=== PATIENT | male | born 1995 | race Caucasian/White ===

== ENCOUNTER 2017-06-29 11:37 | Inpatient (IN) | payer OTHER, BC ==
[~2017-06-29] VITALS: Ht 177.8 cm; Wt 74.7 kg
--- NOTE | ~2017-06-29 | EKG ---
[facility] [address] [address] ELECTROCARDIOGRAM REPORT Name: AGUILAR HUGHES [id number] Admission: 06/29/17 Attend Phys: Discharge: Date of : [birth year] Report #: [id number] THIS REPORT FOR: //name// [facility] ED Test Date: 2017-06-29 Test Time: 11:54:41 Pat Name: AGUILAR HUGHES Department: Room: Gender: Chiropractic Physician: [facility] : 1995 Requested By: Vincenzo Jennings Order Number: [id number] MD: Bobby Burr Measurements Intervals [place] Rate: 76 P: -28 VA: 196 QRS: 72 QRSD: 91 T: 34 QT: 382 QTc: 430 Interpretive Statements Sinus rhythm ST elev, probable normal early repol pattern No previous ECG available for comparison Electronically Signed On 06-29-2017 16:15:38 CDT by Bobby Burr [email or web address] <ELECTRONICALLY SIGNED> By: Bobby Burr MD 06/29/17 1615 [id number] Bobby Burr MD /ERIKA
--- NOTE | ~2017-06-29 | HC ---
[facility] [place] [address] CONSULTATION Name: AGUILAR HUGHES Room #: 217-P ADM IN M.R.#: [id number] Admission: 06/29/17 Attend Phys: Modesto Nascimento DO Discharge: Date of : [birth year] Report #: [id number] THIS REPORT FOR: //name// CC: Modesto Nascimento NO PCP Naun Pantoja REASON FOR CONSULTATION: I was asked to evaluate for possible meningitis. HISTORY OF PRESENT ILLNESS: The patient was a 21-year-old who presents with severe headache and confusion. He does have a history of migraine headaches. He has been on several medications, but has had poor control. He has had a headache for about 3 days. No fever, chills or sweats. He was driving home from work and headache worsened. He pulled off the highway and highway patrol brought him in the Emergency Room. He is currently alert and cooperative. He still has headache mostly on the left side. He did note that he had loss of vision to his right eye. This is fairly typical for him with migraine headache. He has had no generalized weakness. No seizure activity. REVIEW OF SYSTEMS: Notes no rash, arthritis, pharyngitis symptoms, cough or sputum production. No chest pain, shortness of breath, nausea, vomiting, diarrhea, dysuria or frequency. He did have occasional episode of emesis with severe pain, but he has been able to eat. He has had no travel. No HIV risk factors. He works for a ____ [employer]. ALLERGIES: None. MEDICATIONS: None prior to his admission. He was given ceftriaxone in the Emergency Room. PAST MEDICAL HISTORY: Unremarkable. FAMILY HISTORY: Noncontributory. SOCIAL HISTORY: Nonsmoker, no significant alcohol intake. REVIEW OF SYSTEMS: As noted above. PHYSICAL EXAMINATION: VITAL SIGNS: He is afebrile, hemodynamically stable. Maximum temperature was 99.3. GENERAL: He was alert and cooperative. He had bilateral conjunctivitis. HEENT: Otherwise, unremarkable. NEUROLOGIC: Normal. NECK: Supple. LUNGS: Clear. HEART: Regular. [facility] [address] [place] [address] CONSULTATION Name: AGUILAR HUGHES Room #: 217-P [facility] IN M.R.#: [id number] Admission: 06/29/17 Attend Phys: Modesto Nascimento DO Discharge: Date of : [birth year] Report #: [id number] ABDOMEN: Soft and nontender. EXTREMITIES: He had no rashes or adenopathy. LABORATORY STUDIES: Hemoglobin 15, WBC 12.4, platelet count 192,000. Differential 85% segs, 10% lymphs. Sodium 135, potassium 3.1, bicarbonate 23, creatinine 1.1. Blood and CSF cultures are pending. Drug screen was negative. Urinalysis had 1+ ketones. CT of the head with angio negative. MRI scan of the head negative. Chest x-ray was clear. Lumbar puncture, normal. IMPRESSION AND PLAN: Migraine headache. He does have conjunctivitis, but no evidence for underlying infection. I would like to stop his antibiotics at this time and repeat laboratory studies including CBC in the a.m. He will continue with treatment for his migraine headaches. Neurology is to see him. Thank you for this consultation. <ELECTRONICALLY SIGNED> By: Marco Manuel MD 06/30/17 1139 99 99 Marco Manuel MD /nt
--- NOTE | ~2017-06-29 | HC ---
[facility] [place] [place] [address] CONSULTATION Name: AGUILAR HUGHES Room #: 217-P ADM IN M.R.#: [id number] Admission: 06/29/17 Attend Phys: Modesto Nascimento DO Discharge: Date of : [birth year] Report #: [id number] THIS REPORT FOR: //name// CC: Modesto Nascimento NO PCP Naun Pantoja DATE OF SERVICE: 06/30/2017 HISTORY OF PRESENT ILLNESS: This is a 21-year-old male patient for whom an attempt was made to evaluate him yesterday, which was unsuccessful because of the patient's combativeness. I reexamined him today and talked to him. He is back to baseline and is able to provide reasonably good history. His stepfather and mother are here and she provided some history. I talked to his dad who is a woodworking machine operator on the phone. Around the age of 16, he started having a headache. The headache is exclusively on the left side. When they come, the patient also has speech difficulty as well as right-sided numbness and weakness. He does not understand things and cannot talk and he becomes combative. He was admitted to [facility] where he required multiple medications including Haldol and Compazine. He had an extensive workup there and the workup was unremarkable. He did have dystonic reaction to Haldol or Compazine, but they were not sure. Over the period of time, he had been tried on propranolol and calcium channel dylan. It is not clear whether he has been tried on Topamax or not. His episodes has become less frequent, but more severe. The episode he had yesterday started with migraine which lasted about 3 days. He still went to work. He used pesticide. It does not look like he was having any evidence of organophosphorus poisoning. He may have had a little increased salivation. Then, after 3 days of headache, which was exclusively on the left side, he had a severe alteration in the patient's mental status. He received multiple medications in the Emergency Room and since then, he has returned back to his baseline. They also gave him antibiotics in Emergency Room. REVIEW OF SYSTEMS: His previous episode has come without any exposure to organophosphorus poisoning. He does not know any trigger which bring these headaches on. I carried out his 14-point review of systems, is mostly unremarkable. He does not think he is under stress. 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 He does smoke some time. He drinks alcohol once a while. When he does, it is less than 2 beers. Rest of the 14-point review of system is mostly unremarkable. PAST MEDICAL HISTORY: Positive for these migraine. FAMILY HISTORY: He does not appear to have any history suggestive of any congenital migraines, or hemiplegic migraine type headache. [address] [address] CONSULTATION Name: AGUILAR HUGHES Room #: 217-P ADM IN M.R.#: [id number] Admission: 06/29/17 Attend Phys: Modesto Nascimento DO Discharge: Date of : [birth year] Report #: [id number] SOCIAL HISTORY: Occasionally drinks and smokes. PHYSICAL EXAMINATION: Indicate he is alert, responsive. His memory is still slightly poor, but that may be because of medication. He is oriented and able to follow command. Cranial nerve examination 2-12 is unremarkable. I was able to have a good look at this patient's fundus and there is no papilledema. His strength, sensation, reflexes, tone is symmetrical. He is able to walk without any difficulty. He has no meningeal sign. He is a very well developed individual who does not have any dysmorphic features of eyes, ears and face. His vision and hearing looks adequate. His blood pressure is 107/64, respiration is 18, pulse is 71, temperature is 97.8. He has no edema, cyanosis or jaundice. There is no cardiac abnormality. LABORATORY DATA: I reviewed his workup and his MRI of the brain with and without contrast is unremarkable. His CT angio of the head and neck is unremarkable. This patient had multiple workups in the Emergency Room. His last white count is 10.4. First one was trace high. His spinal fluid indicates normal WBC. 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 I discussed with them his presumptive diagnosis and their options in that regard. He has no family history of any muscle disease or migraine indicating any congenital factor unlikely in this patient. RECOMMENDATIONS: Treatment is even difficult in this patient. He gets one episode a year, but they are becoming more severe and yesterday, they were even thinking of intubating him to get the testing done because the episode was so severe. I discussed with him his option. Propranolol and calcium channel dylan has not been very effective in him. We talked about Depakote, magnesium salt, vitamins or Topamax. He wants to try Topamax and he said he may have been tried that and this did help, but he did not want to take it in the past because they were infrequent. Now, he wants to take Topamax. I discussed both long and short term side effect of Topamax with the patient including glaucoma, which can be catastrophic and kidney stones. He understands all those. He wants to try Topamax. I think he should be on Topamax 25 mg p.o. at bedtime and ultimately 1 p.o. b.i.d. If he has any side effect, he should contact us right away. Otherwise, we will see how he does. Combining yesterday's and today's time, more than 70 minutes of time was spent taking care of this patient today and majority of that time was spent counseling this patient and coordinating his care. Thank you very much for this referral. By: [id number] Naun Pantoja MD /nt
--- NOTE | ~2017-06-29 | EEG ---
[facility] [address] [address] [place] [address] ELECTROENCEPHALOGRAM Name: AGUILAR HUGHES Room #: 217-P ADM IN M.R.#: [id number] Admission: 06/29/17 Attend Phys: Modesto Nascimento DO Discharge: Date of : [birth year] Report #: [id number] THIS REPORT FOR: //name// CC: Modesto Nascimento NO PCP Naun Pantoja DATE OF SERVICE: 06/30/2017 This patient is being evaluated for altered mental status. Background activity in this patient's EEG is about 9 Hz and 25 microvolt. It is a symmetrical activity. The patient did become drowsy that is associated with bilateral slowing and vertex sharp waves. Photic stimulation was unremarkable. Throughout the record, no active epileptiform activity was noticed. IMPRESSION: This patient's EEG is unremarkable. Thank you very much for this referral. By: [id number] Naun Pantoja MD /denia
[2017-06-29 11:38] VITALS: BP 131/109
[2017-06-29 13:24] LABS: HEMATOCRIT 43.7 % (42.0-52.0); HEMOGLOBIN 15.2 gm/dL (14.0-18.0); MANUAL DIFF YES; MCH 29.6 pg (26.0-34.0); MCHC 34.9 g/dL (28.0-37.0); MCV 84.8 fL (80.0-100.0); PLATELET COUNT 192 thou/uL (150-400); RBC 5.15 mil/uL (4.50-6.00); RDW 13.4 % (10.5-14.5); WBC 12.4 thou/uL (4.0-11.0)
[2017-06-29 13:39] LABS: CALCIUM 9.9 mg/dL (8.5-10.1); CREATININE 1.1 mg/dL (0.7-1.3); POTASSIUM 3.1 mmol/L (3.5-5.1)
[2017-06-29 14:16] LABS: ABSOLUTE NEUTROPHILS 10.5 thou/uL (1.4-8.2); TOTAL CELL COUNT 100
[2017-06-29 15:06] LABS: URINE BILIRUBIN NEGATIVE (Negative); URINE BLOOD NEGATIVE (Negative); URINE COLOR YELLOW; URINE GLUCOSE-RANDOM* NEGATIVE (Negative); URINE KETONES 1+ (Negative); URINE LEUKOCYTES-REFLEX NEGATIVE (Negative); URINE PROTEIN (DIPSTICK) TRACE (Negative); URINE UROBILINOGEN 0.2 E.U./dl (0.2-1.0)
[2017-06-29 15:14] LABS: AMP/METHAMP Negative (Negative); BARBITURATES Negative (Negative); BENZODIAZEPINES Negative (Negative); COCAINE Negative (Negative); METHADONE Negative (Negative); OPIATES Negative (Negative); PCP Negative (Negative); THC Negative (Negative)
[2017-06-29 16:29] LABS: CSF GLUCOSE 62 mg/dL (40-70); CSF PROTEIN 27 mg/dL (15-45)
[2017-06-29 16:45] LABS: CSF CLARITY CLEAR; CSF COLOR COLORLESS; CSF WBC 1 /mm3 (0-10); MANUAL DIFF NO; NUMBER OF TUBES 4; VOLUME 7 ml
[2017-06-29 17:31] VITALS: BP 118/55
[2017-06-29] MEDS ORDERED: DIPHENHIST50 MG PO (19:00)
[2017-06-29] MEDS ORDERED: ALLERGY MEDICATION (19:01)
[2017-06-29 19:43] VITALS: BP 113/59
[2017-06-30 03:49] VITALS: BP 104/57
[2017-06-30 04:50] LABS: ABSOLUTE NEUTROPHILS 6.1 thou/uL (1.4-8.2); BASOPHILS 0.5 % (0.0-2.0); EOSINOPHILS 0.6 % (0.0-3.0); HEMATOCRIT 40.7 % (42.0-52.0); LYMPHOCYTES 27.9 % (24.0-44.0); MCH 29.5 pg (26.0-34.0); MCHC 34.5 g/dL (28.0-37.0); MCV 85.5 fL (80.0-100.0); MONOCYTES 9.7 % (1.0-8.0); PLATELET COUNT 170 thou/uL (150-400); POLYS 61.3 % (36.0-66.0); RBC 4.76 mil/uL (4.50-6.00); RDW 13.5 % (10.5-14.5)
[2017-06-30 04:53] LABS: MANUAL DIFF NO
[2017-06-30 05:02] LABS: POTASSIUM 3.8 mmol/L (3.5-5.1)
[2017-06-30 07:08] VITALS: BP 107/64
[2017-06-30 07:15] VITALS: BP 107/64
[2017-06-30 11:05] VITALS: BP 107/64
[2017-06-30] MEDS ORDERED: TOPAMAX 25 MG T25 M1 PO (11:52)
== END 2017-06-30 18:15 | disposition home or self-care (01) | DRG 102 ==
LOC: ER 11:37 → EROBS 16:22 → 2N 16:22
PROVIDERS: Family Medicine; Physician Assistant
PROC: 009U3ZX Drainage of Spinal Canal, Percutaneous Approach, Diagnostic (ICD-10-PCS; principal; 2017-06-29)
DX: G43.909 Migraine, unspecified, not intractable, without status migrainosus (principal); G93.40 Encephalopathy, unspecified; G03.9 Meningitis, unspecified; R65.10 Systemic inflammatory response syndrome (SIRS) of non-infectious origin without acute organ dysfunction; G44.89 Other headache syndrome; E87.6 Hypokalemia; H10.9 Unspecified conjunctivitis; Z23 Encounter for immunization
CPT/HCPCS: 10081